=== PATIENT | male | born 1980 | race Caucasian/White ===

== ENCOUNTER → 2024-03-20 09:57 | Outpatient (CLI) | payer OTHER, SELFPAY ==
[2024-03-20 10:47] LABS: COVID-19 CEPHEID 4-PLEX PCR Negative (Negative); Influenza A - CEPHEID Flu A POSITIVE (NEGATIVE); Influenza B - CEPHEID Flu B NEGATIVE (NEGATIVE); Respiratory Syncytial Virus Negative (Negative)
== END ==
PROVIDERS: Visit Provider Nurse Practitioner Family
DX: R50.9 Fever, unspecified (principal); R05.9 Cough, unspecified
CPT/HCPCS: 0241U; 87070

== ENCOUNTER → 2024-03-20 10:29 | Outpatient (CLI) | payer OTHER, SELFPAY ==
--- NOTE | 2024-03-20 10:32 | DI.RAD.S_ITS ---
PROCEDURE: XR CHEST 2V INDICATIONS: Cough TECHNIQUE: 2 views of the chest were acquired. COMPARISON: None. FINDINGS: Heart, mediastinum and pulmonary vascular: Heart is normal in size and configuration. Mediastinum is unremarkable. Pulmonary vascular is normal. Lungs: Clear Pleural spaces: Normal-no effusions or pneumothorax. Bones and soft tissues: Normal IMPRESSION: Normal chest. Dictated by: Jarvis Aden M.D. on 03/21/2024 at 9:40 Approved by: Jarvis Aden M.D. on 03/21/2024 at 9:40
== END ==
PROVIDERS: Referring Provider Nurse Practitioner Family; Visit Provider Nurse Practitioner Family
DX: R05.9 Cough, unspecified (principal); R50.9 Fever, unspecified
CPT/HCPCS: 0241U; 71046; 87070